=== PATIENT | female | born 1965 | race Caucasian/White ===

== ENCOUNTER → 2020-05-09 | Outpatient (CLI) | payer OTHER ==
[2020-05-09 10:02] LABS: HCT 47.6 % (34.0-46.0); HGB 15.9 gm/dL (11.4-16.0); MCH 29.4 pg (25.0-35.0); MCHC 33.3 g/dL (31.0-37.0); MCV 88.2 fL (80.0-100.0); Mean Platelet Volume 7.5; Platelet Count 322 k/uL (150-450); RDW 13.4 % (11.5-15.5); WBC 7.6 k/uL (3.8-10.6)
[2020-05-09 10:29] LABS: Appearance,Urine Clear (Clear); Bilirubin,Urine Negative (Negative); Blood,Urine Negative (Negative); Color,Urine Light Yellow; Glucose,Urine (UA) Negative (Negative); Ketones,Urine Negative (Negative); Leukocyte Esterase,Urine Moderate (Negative); Mucus,Urine Rare /hpf; Nitrite,Urine Negative (Negative); Protein,Urine Negative (Negative); RBC,Urine 1 /hpf (0-5); Specific Gravity,Urine 1.011 (1.001-1.035); Squamous Epithelial Cell,Urine 1 /hpf (0-4); Urobilinogen,Urine <2.0 mg/dL (<2.0); WBC,Urine 2 /hpf (0-5)
[2020-05-09 15:04] LABS: INR 0.99 (0.90-1.11); Partial Thromboplastin Time 24.6 sec (24.7-29.9); Prothrombin Time 10.6 sec (9.9-11.9)
[2020-05-09 17:14] LABS: African American GFR (CKD) 97.6 (60.0-200.0); Albumin 4.5 g/dL (3.80-4.90); Albumin/Globulin Ratio 2.05 (1.60-3.17); Anion Gap 8.4 mmol/L (4.00-12.00); Calcium 9.8 mg/dL (8.7-10.3); Carbon Dioxide 31.6 mmol/L (21.6-31.8); Globulin 2.2 g/dL (1.6-3.3); Non-African American GFR(CKD) 84.2 (60.0-200.0); Potassium 3.4 mmol/L (3.5-5.5); Total Bilirubin 0.5 mg/dL (0.3-1.2); Total Protein 6.7 g/dL (6.2-8.2)
== END | disposition home or self-care (01) ==
LOC: LABWHC1 08:44
PROVIDERS: ATTEND Orthopaedic Surgery Sports Medicine
DX: Z01.818 Encounter for other preprocedural examination (principal); Z01.812 Encounter for preprocedural laboratory examination; M17.11 Unilateral primary osteoarthritis, right knee
CPT/HCPCS: 36415; 80053; 81001; 85027; 85610; 85730; 87070; 93005

== ENCOUNTER 2020-05-25 07:29 | Day surgery (SDC) | payer OTHER ==
[2020-05-17 09:18] VITALS: BMI 37.1
[~2020-05-25 07:29] MED LIST: CLINDAMYCIN 900 MG in DEXTROSE 5% IN WATER 50 ML IVPB ONE; HYDROmorphone 0.5 MG/0.5 ML SYRINGE IVP PRN; MIDAZOLAM 2 MG/2 ML VIAL IV PRN; ONDANSETRON 4 MG/2 ML VIAL IVP ONE; ROPIVACAINE 246.25 MG, EPINEPHrine 0.5 MG, KETOROLAC 30 MG, cloNIDine HCL/PF 80 MCG, WA... MISCELLANE ONE; TRANEXAMIC ACID 1,000 MG in SODIUM CHLORIDE 0.9% 100 ML IVPB ONE
[2020-05-25] MEDS: LACTATED RINGERS 1,000 ML IV SCH ×3 (08:08→15:49)
[2020-05-25] MEDS ORDERED: ACETAMINOPHEN TAB 500 MG TAB ONE (08:12)
[2020-05-25] MEDS ORDERED: ONDANSETRON 4 MG/2 ML VIAL ONE (08:13)
[2020-05-25] MEDS: GABAPENTIN 300 MG CAP PO ONE ×2 (08:18→13:58)
[2020-05-25] MEDS: MELOXICAM 7.5 MG TAB PO ONE ×2 (08:18→13:58)
[2020-05-25] MEDS: ACETAMINOPHEN TAB 500 MG TAB PO ONE ×2 (08:18→13:57)
[2020-05-25] MEDS: ONDANSETRON 4 MG/2 ML VIAL IVP ONE ×2 (08:19→15:48)
[2020-05-25] MEDS: DEXAMETHASONE SOD PHOSPHATE 10 MG/ML 1 ML VIAL IV ONE ×2 (08:19→15:48)
--- NOTE | 2020-05-25 08:50 | P.ANPRN ---
Procedure Note - Anesthesia - Nerve Block Performed Right Adductor Canal Infusion Time Out Performed: Yes Date of Procedure: 05/25/20 Procedure Start Time: : Procedure Stop Time: :37 Location of Patient: PreOp Indication: Acute Post-Operative Pain, Requested by Surgeon Sedation Type: Sedate with meaningful contact maintained Preparation: Sterile Prep, Sterile Dressing Position: Supine Catheter: Indwelling Needle Types: Pajunk Needle Gauge: 21 Ultrasound used to visualize needle placement: Yes Ultrasound used to observe medication spread: Yes Blood Aspirated: No Pain Paresthesia on Injection Noted: No Resistance on Injection: Normal Image Stored and Saved: Yes Events: Uneventful and Well Tolerated (ropi .5% 20cc plus dexamethasone 4mg)
[2020-05-25] MEDS ORDERED: MIDAZOLAM 2 MG/2 ML VIAL ONE (09:33)
[2020-05-25] MEDS ORDERED: TRANEXAMIC ACID 1,000 MG/10 ML VIAL ONE (09:33)
[2020-05-25] MEDS ORDERED: fentaNYL (PF) 50 MCG/ML 2 ML AMP ONE (09:33)
[2020-05-25] MEDS ORDERED: SODIUM CHLORIDE 0.9% 100 ML BAG ONE (09:33)
[2020-05-25] MEDS ORDERED: PROPOFOL 10 MG/ML 20 ML VIAL IV ONE (09:33)
[2020-05-25] MEDS ORDERED: ceFAZolin 3,000 MG in SODIUM CHLORIDE 0.9% IRRIGATIO 3,000 ML IRRIGATION ONE (10:09)
[2020-05-25] MEDS ORDERED: LACTATED RINGERS 1,000 ML IV ONE (10:33)
[2020-05-25] MEDS ORDERED: ROPIVACAINE 0.2%-NS ON-Q PUMP 1,090 MG, EMPTY PAIN BALL 1 EACH MISCELLANE PRN (11:42)
[2020-05-25] MEDS ORDERED: ACETAMINOPHEN TAB 325 MG TAB PO PRN (12:19)
[2020-05-25] MEDS ORDERED: diazePAM 5 MG TAB PO PRN (12:19)
[2020-05-25] MEDS ORDERED: HYDROmorphone 1 MG/ML 1 ML SYRINGE IVP PRN (12:19)
[2020-05-25] MEDS ORDERED: NALOXONE 0.4 MG/ML 1 ML VIAL IV PRN (12:19)
[2020-05-25] MEDS ORDERED: TEMAZEPAM 15 MG CAP PO PRN (12:19)
[2020-05-25] MEDS ORDERED: Acetaminophen-Codeine 300-30mg TAB PO PRN ×2 (12:19)
[2020-05-25] MEDS ORDERED: bisacodyL 10 MG SUPP RECTAL PRN (12:19)
[2020-05-25] MEDS ORDERED: traMADol 50 MG TAB PO PRN (12:19)
[2020-05-25] MEDS ORDERED: NA PHOS,M-B/NA PHOS,DI-BA 133 ML ENEMA RECTAL PRN (12:19)
[2020-05-25] MEDS ORDERED: ONDANSETRON 4 MG/2 ML VIAL IVP PRN (12:19)
[2020-05-25] MEDS ORDERED: MAGNESIUM HYDROXIDE 2,400 MG/10 ML CUP PO PRN (12:19)
[2020-05-25] MEDS ORDERED: HYDROcodone/APAP 5-325MG 1 EACH TAB PO PRN (12:19)
[2020-05-25] MEDS ORDERED: hydrOXYzine pamoate 25 MG CAP PO PRN (12:19)
[2020-05-25] MEDS ORDERED: HYDROmorphone 0.5 MG/0.5 ML SYRINGE IVP PRN ×2 (12:19)
--- NOTE | 2020-05-25 12:27 | XR ---
EXAMINATION TYPE: XR knee limited RT DATE OF EXAM: 05/25/2020 COMPARISON: NONE HISTORY: 54-year-old female postoperative right knee replacement, assess alignment and complications TECHNIQUE: 2 views FINDINGS: Images show placement of right total knee are requested. Both distal femoral and proximal tibial comp onents of the prosthesis appear well seated without there are prostatic fracture. Alignment grossly a natomic. Anterior soft tissue swelling with scattered soft tissue air as well as intra-articular air in joint fluid compatible with recent operation. IMPRESSION: Uncomplicated postoperative appearance right total knee arthroplasty.
[2020-05-25] MEDS ORDERED: ceFAZolin 3 GM in SODIUM CHLORIDE 0.9% 100 ML IVPB SCH (16:00)
[2020-05-25] MEDS: CLINDAMYCIN 900 MG in DEXTROSE 5% IN WATER 50 ML IVPB SCH ×4 (16:13→22:27)
--- NOTE | 2020-05-25 18:35 | CONS ---
CONSULTATION REASON FOR CONSULTATION: Advice regarding hypertension and other multiple medical issues, requested by Dr. Mercado. HISTORY OF PRESENT ILLNESS: This 54-year-old woman with a past medical history of GERD, hypertension, history of liver disease, history of DJD, history of back surgery, being followed by Dr. Musa Avina in the outpatient setting, was admitted after right total knee arthroplasty. The patient tolerated the procedure well. There is no history of any fever, rigor or chills. No history of headache, loss of consciousness, seizures. The blood pressure was found to be 109/55 after surgery, pulse ox 93% on room air. PAST MEDICAL HISTORY: History of GERD, hypertension, liver disease, DJD, history of appendectomy, back surgery. HOME MEDICATIONS: 1. Maxzide 1 tablet p.o. daily. 2. Protonix 40 daily. 3. Fish oil 2 daily. 4. Multivitamins. 5. Loratadine. 6. Skin cream. ALLERGIES: AMOXICILLIN AND MORPHINE. FAMILY HISTORY: History of ovarian cancer in the family. SOCIAL HISTORY: No history of smoking. No history of alcohol intake. REVIEW OF SYSTEMS: ENT: No diminished hearing. No diminished vision. CARDIOVASCULAR SYSTEM: No angina, palpitations. RESPIRATORY SYSTEM: No cough, hemoptysis. GI: No nausea, vomiting, diarrhea. : No dysuria or retention. NERVOUS SYSTEM: No numbness, weakness. ALLERGY/IMMUNOLOGY: No asthma, hayfever. MUSCULOSKELETAL: As mentioned earlier. HEMATOLOGY/ONCOLOGY: No history of anemia. ENDOCRINE: No history of diabetes, hypothyroidism. CONSTITUTIONAL: As mentioned earlier. DERMATOLOGY: Negative. RHEUMATOLOGY: Negative. PSYCHIATRY: As mentioned earlier. PHYSICAL EXAMINATION: Patient alert and oriented x3. Pulse 59, blood pressure 109/55, respiration 18, temperature 97.5, pulse ox 94% on room air. HEENT: Conjunctivae normal. Oral mucosa moist. NECK: No jugular venous distention. No carotid bruit. No lymph node enlargement. CARDIOVASCULAR SYSTEM: S1, S2 muffled. RESPIRATORY SYSTEM: Breath sounds diminished at the bases. A few scattered rhonchi and crackles. ABDOMEN: Soft, non-tender. No mass palpable. LEGS: Status post right knee arthroplasty. NERVOUS SYSTEM: Higher functions as mentioned earlier. Moves all 4 limbs. No focal motor or sensory deficit. LYMPHATICS: No lymph node palpable in neck, axillae or groin. SKIN: No ulcer, rash, bleeding. JOINTS: No active deforming arthropathy. LABS: Potassium 4.2. The previous preoperative labs are CBC within normal limits. Otherwise, labs are noted. ASSESSMENT: 1. Status post right total knee arthroplasty. 2. History of gastroesophageal reflux disease. 3. Hypertension. 4. Chronic degenerative joint disease. 5. Appendectomy. 6. History of back surgery. 7. Remote history of nicotine dependence. RECOMMENDATIONS AND DISCUSSION: In this 54-year-old woman who presented with multiple complex medical issues, we will monitor the patient closely, continue the current medications, continue with symptomatic treatment. Monitor blood pressure closely. Hold Maxzide at this time. Guarded prognosis. Further recommendations to follow. Thank you, Dr. Mercado, for letting us participate in the care of this patient. Recommend close followup with primary physician after discharge. SHARON / CIELO: [id number] / MTDNatali
[2020-05-25] MEDS: HYDROcodone/APAP 10-325MG 1 EACH TAB PO PRN (18:40)
[2020-05-25] MEDS: ASPIRIN 81 MG PO SCH (19:22)
[2020-05-25] MEDS ORDERED: SENNOSIDES-DOCUSATE SODIUM 1 EACH TAB PO SCH (21:00)
[2020-05-26] MEDS: LACTATED RINGERS 1,000 ML IV SCH ×3 (00:12→07:31)
--- NOTE | 2020-05-26 01:12 | OP ---
OPERATIVE REPORT DATE OF PROCEDURE: 05/25/2020 SURGEON: Kevin Mercado MD. DIRECTOR TARGETED MARKETING: Oliver BUCKNER. PREOPERATIVE DIAGNOSIS: Right knee osteoarthrosis. POSTOPERATIVE DIAGNOSIS: Right knee osteoarthrosis. OPERATION: Right total knee arthroplasty. ANESTHESIA: Spinal with sedation. ESTIMATED BLOOD LOSS: 100 mL. TOURNIQUET TIME: 50 minutes at 250 mmHg. COMPLICATIONS: None apparent. DRAINS: None. DISPOSITION: Postanesthesia care unit. INDICATIONS: Genesis is a 54-year-old female with longstanding history of right knee pain. History and physical examination are consistent with advanced right knee osteoarthrosis. She has been through significant nonoperative management up to this point. Further treatment options were discussed and she decided to go for the right total knee arthroplasty. The risks of procedure were discussed with her in detail. These risks include, but are not limited to risk of infection, nerve damage, bleeding, pain, and a small risk of deep vein thrombosis which could lead to fatal pulmonary embolism. There is also risk of loosening of the implant which could require revision operation. The patient understands these risks. All of her questions were answered to her satisfaction. Appropriate informed consent was obtained. DESCRIPTION OF PROCEDURE: The patient identified in preoperative holding area. Surgical site was marked by both the patient and myself. She was given 2 g of Ancef IV for prophylactic purposes. She was then transferred to the operative suite. She was placed supine on the operating room table. Spinal anesthetic was then administered and dosed per the anesthesia department without apparent complication. Examination under anesthesia was then performed. The patient was 2-3 degrees shy of full extension. She had 95 degrees of flexion. The medial collateral ligament, lateral collateral ligament and posterior cruciate ligaments were stable. Tourniquet was then placed high on the right upper thigh well-padded in preparation for surgery. The patient's right lower extremity was then prepped and draped in usual sterile fashion. Standard surgical pause was then undertaken to ensure that we were operating on the correct site and that appropriate preoperative antibiotics had been given. All staff in the room were in agreement and we proceeded. The outlines of patella were marked with surgical pen. A planned 12 cm vertical incision centered over the patella was marked with surgical pen. The leg was then exsanguinated with an Esmarch dressing. The knee was then flexed and tourniquet was inflated to 250 mmHg. Total tourniquet time for the procedure was 50 minutes at 250 mmHg. Incision was then made with a 10 blade scalpel. Dissection carried down sharply overlying fascia. Great care was taken to minimize the skin flaps. The knee was then exposed using a standard medial parapatellar approach. A small cuff of quadriceps tendon was then left for suturing. She was in a bit of varus preoperatively. Standard medial release was then made. Superficial medial collateral ligament was dissected off the bone around the posterior aspect of the proximal tibia. The medial meniscus was then excised as well. The lateral meniscus was also released anteriorly. The leg was then externally rotated. The patella was everted. The knee was flexed. Retractors were then placed to protect the collateral ligaments. I then proceeded to remove the infrapatellar fat pad. This was excised sharply tangentially with fibers of the patellar tendon. I then proceeded to remove peripheral osteophytes. This was done with a rongeur. I then proceeded with distal femoral resection. She did have near full extension. A planned 9 mm resection was then done. The femoral canal was then entered in the midline of the femur approximately 10 mm anterior to the origin of the posterior cruciate ligament. The niesha was then advanced down the center of the femur and placed intramedullary. Based on the preoperative radiographs, the angle between the anatomic and mechanical axis of the femur was approximately 4-5 degrees. The valgus angle of this femoral cutting guide was then set at 4 degrees for the right knee. The distal femoral cutting guide was then advanced over the intramedullary niesha. This was seated firmly against the femur. I then as mentioned planned to take 9 mm off the distal femur. The cutting block was then secured onto the femur with pins. The jig was removed and the distal femoral cut was made through the slot of the block. The pins were then removed and the distal femoral cutting block was removed. The accuracy of the distal femoral cuts was checked with 2 flat bars. I then proceeded with femoral sizing. Posterior referencing sizing guide was held firmly against the resected distal surface of the femur. The posterior condyles were resting on the posterior plane of the guide. The sizing stylus was then placed onto the anterior femur. The size was measured as a size 6. I then assessed for femoral rotation. Plan was for 3 degrees of external rotation. Three degrees of external rotation was placed onto the jig. These holes were then marked. I then confirmed the rotation by 3 separate methods. This was done using epicondylar axis as well as Whitesides line and posterior referencing. It was deemed that the external rotation was proper. I then went forward with placing the femoral cutting block. This was placed over the previously placed pin holes. The Ricardo wing was placed on the anterior slots to ensure that we would not notch the anterior femur with the anterior femoral cut. I then proceeded with the anterior femoral cut. This was flushed with the anterior cortex of the femur. The posterior cuts were then made followed by the anterior chamfer cut, then the posterior chamfer cut. The cutting block was then removed. Throughout the resection, the collateral ligaments were protected with retractors. I then placed a trial size 6 femur. It appeared to fit very nice medial-lateral and fit flush with the distal end of the femur. The drill holes were then made. I then proceeded with the tibial cut. I planned for cruciate retaining knee. The guide was placed and set for varus valgus and for slope. The height was set for approximate 2 mm resection from the medial tibial plateau which was the lower side. I was happy with the alignment amount of resection. The cutting block was then pinned to the proximal tibia. The alignment niesha was removed. The proximal tibia was resected with a reciprocating saw. Again this was done with retractors protecting the collateral ligaments as well as the posterior cruciate ligament. I then proceeded to evaluate the flexion and extension gaps. A 10 mm block was then placed. The flexion and extension gaps were equal. I then proceeded with resection of posterior osteophytes. Very minimal posterior osteophytes. This was done using a curved osteotome. This resected the posterior osteophytes and posterior capsule stripping done off the posterior aspect of the femur. The osteophytes were then removed. I then proceeded with resection of patella. The thickness of the patella was measured using the caliper. The thickness was 22 mm. Thickness of the anticipated patellar dome was taken into account. Resection was then performed and confirmed to be equal in 4 quadrants using a caliper. Approximately 14 mm of bone remained after resection. A 29 x 8 standard patellar trial was then placed. The holes were drilled. The trial was then placed. I then proceeded with sizing tibial plate. A size D tibial plate fit very nicely. I then placed the trial femur, the tibial tray and patellar button. A 10 mm trial tibial insert was also placed. The components fit very nicely. She had full extension and flexion. The extension and flexion gaps were equal and stable to both varus and valgus stress. The patella tracked appropriately. The tibial tray rotation was then marked with a Bovie. This was externally rotated properly. I then proceeded with tibial preparation. I first drilled the femoral holes removed femoral component. The tibial tray was then set for proper external rotation as well as mediolateral placement onto the tibia. It was then pinned into place. Then proceeded with punching the keel. I then decided to proceed with cementing of all of our components. The knee was thoroughly irrigated with sterile saline solution via pulse lavage. The lateral geniculate artery was identified and cauterized. All blood was removed from the bone of the tibia femur and patella with pulse lavage. I then proceeded with cementing. Two packs of antibiotic bone cement prepared on the back table by the surgical attendant. I then proceed with cementing of the tibia first. Cement was impacted in the keel as well as deeply seated into the bone. A second coat of cement was then placed. The tibia was then impacted into place. Excess cement was removed with Laura's and jokers. I then proceeded to cementing of the femoral component. The femoral component was also cemented using standard technique. Excess cement was removed. A 10 mm trial insert was then placed into the knee. It was brought into full extension with a constant axial load placed until the cement had hardened. The patellar component was then cemented. This was held firmly with a compressive device until the cement had dried. When the cement had dried, the knee was taken out of extension. All excess cement was removed from around the prosthesis. I then trialed the knee with a 10 mm insert. The flexion and extension gaps were appropriate. The knee was stable. It came into full extension. I decided to go forward with the 10 mm cross-linked cruciate-retaining tibial insert. Polyethylene was then placed on the tibial tray and locked into place. The knee was then reduced. The knee was again further irrigated with sterile saline solution with antibiotic added. The tourniquet was then deflated. Total tourniquet time for the procedure was 50 minutes at 250 mmHg. Final components were Hussein Persona size 6 cruciate-retaining femoral component size D tibial tray, a 10 mm medial congruent cruciate-retaining polyethylene insert and a 29 x 8 patella. I then proceeded with closure. Again, the knee was thoroughly irrigated. The quadriceps tendon and the medial retinaculum were reapproximated with #2 Ethibond suture. The extensor mechanism was then closed with a running #2 Quill suture. Subcutaneous tissues were closed with 2-0 Vicryl interrupted suture. The skin was closed with a running 3-0 Quill suture. Dermabond was applied to the incision. Sterile compressive dressings were applied. All sponge and needle counts were deemed correct prior to closure. The patient tolerated procedure without apparent complication. She was transferred recovery room in stable condition. MMODL / IJN: [id number] /
[2020-05-26] MEDS: HYDROcodone/APAP 10-325MG 1 EACH TAB PO PRN ×2 (01:23→10:05)
--- NOTE | 2020-05-26 06:41 | P.PN ---
Progress Note - Text 05/26/20 633am 54-year-old female status post total knee replacement by Dr. Mercado. Patient seen and evaluated this morning, patient has an On-Q pump for postop pain control with the solution running at 8 mL an hour, patient has a VAS of 5. Patient states that she is comfortable and doing well. Plan to continue On-Q pump infusion
[2020-05-26] MEDS: ASPIRIN 81 MG PO SCH (07:41)
[2020-05-26 07:44] VITALS: BP 100/66; PULSE 77; RESP 18; TEMP 97.8
[2020-05-26 09:25] LABS: Basophils # (A) 0.1 k/uL (0-0.2); Basophils % (A) 0 %; Eosinophils % (A) 0 %; HCT 43.6 % (34.0-46.0); HGB 14.2 gm/dL (11.4-16.0); Lymphocytes # (A) 1.9 k/uL (1.0-4.8); Lymphocytes % (A) 11 %; MCH 29.4 pg (25.0-35.0); MCHC 32.7 g/dL (31.0-37.0); MCV 89.9 fL (80.0-100.0); Mean Platelet Volume 7.5; Monocytes # (A) 0.7 k/uL (0-1.0); Monocytes % (A) 4 %; Neutrophils # (A) 14.2 k/uL (1.3-7.7); Neutrophils % (A) 83 %; Platelet Count 319 k/uL (150-450); RBC 4.85 m/uL (3.80-5.40); RDW 13.4 % (11.5-15.5); WBC 17.2 k/uL (3.8-10.6)
--- NOTE | 2020-05-26 11:19 | P.PN ---
Subjective Progress Note Date: 05/26/20 Principal diagnosis: Right TKA Patient is seen at bedside this morning. She is postop day #1 from right total knee arthroplasty. She has pain at the surgical site as expected but denies any new complaints. She denies numbness, tingling or calf pain. Review of systems is negative for fever, chills, chest pain, shortness of breath or other Objective - Vital Signs Vital signs: Vital Signs Temp 97.8 F 05/26/20 07:00 Pulse 77 05/26/20 07:00 Resp 18 05/26/20 07:00 BP 100/66 05/26/20 07:00 Pulse Ox 93 L 05/26/20 07:00 Intake & Output 05/25/20 05/26/20 05/26/20 18:59 06:59 18:59 Intake Total 1857 Output Total 100 Balance 1757 Weight 104.1 kg Intake: IV 1857 Output: Estimated Blood Loss 100 Other: Voiding Method Toilet # Voids 2 - Exam Inspection reveals a benign surgical wound. There is no active bleeding or drainage. Neurovascular status is intact throughout the lower extremity with motor and sensation fully intact. Calf is soft and nontender. 2+ dorsalis pedis pulse and less than 2 second cap refill is present. - Constitutional General appearance: Present: no acute distress - Labs CBC & Chem 7: 05/26/20 08:48 05/25/20 08:10 Labs: Abnormal Lab Results - Last 24 Hours (Table) 05/26/20 Range/Units 08:48 WBC 17.2 H (3.8-10.6) k/uL Neutrophils # 14.2 H (1.3-7.7) k/uL Assessment and Plan (1) Status post total right knee replacement Narrative/Plan: She will continue with routine postop orthopedic protocol including pain management, wound care, PT, DVT prophylaxis and medical management. Expect that she will transfer to home tomorrow Current Visit: Yes Status: Acute Priority: Medium Code(s): Z96.651 - PRESENCE OF RIGHT ARTIFICIAL KNEE JOINT SNOMED Code(s): 9309755263201 Time with Patient: Less than 30
--- NOTE | 2020-05-26 11:28 | P.DS ---
Providers Expected date of discharge: 05/26/20 Attending physician: Kevin Mercado Consults: 05/25/20 12:19 Consult Physician Routine Consulting Provider: Sarwat Hernandez Consult Reason/Comments: post op medical management Do you want consulting provider notified?: Yes Primary care physician: Musa Avina - Discharge Diagnosis(es) (1) Status post total right knee replacement Patient was admitted to the OR on 05/25/2020 to undergo a right total knee arthroplasty. She had failed conservative measures as an outpatient and desired to proceed with elective surgery after given informed consent. She underwent the above procedure which she tolerated well without complication. Postoperative hospital course has remained without complication. On day of discharge she is afebrile, vital signs stable, labs within acceptable ranges, tolerating by mouth meds and diet, voiding without difficulty, positive flatus, denies abdominal pain or calf pain, pain is controlled on oral pain medication and has no new complaints. Wound is benign, neurovascular status is intact, calf is soft and nontender, abdomen soft and nontender. Review of systems is negative for numbness, tingling, fever, chills, chest pain, shortness of breath, nausea, vomiting, dizziness, headaches, slurred speech or other. Current Visit: Yes Status: Acute Priority: Medium Procedures: Right TKA Patient Condition at Discharge: Good Plan - Discharge Summary Discharge Rx Participant: Yes New Discharge Prescriptions: New Aspirin [Adult Low Dose Aspirin EC] 81 mg PO BID #60 tablet. HYDROcodone/APAP 10-325MG [[place] 10-325] 1 tab PO Q4HR PRN #42 tab PRN Reason: Pain No Action Pantoprazole Sodium [Protonix] 40 mg PO QAM Triamterene-Hctz 75-50Mg [Maxzide 75-50] 1 tab PO DAILY [place]-3 Fatty Acids/Fish Oil [Fish Oil 1,000 mg Softgel] 2 each PO DAILY Multivitamins, Thera [Multivitamin (formulary)] 1 tab PO DAILY Loratadine 10 mg PO DAILY Chemo Cream For Skin Ca 1 applic TOPICAL Q3D Discharge Medication List Chemo Cream For Skin Ca 1 applic TOPICAL Q3D 05/17/20 [History] Loratadine 10 mg PO DAILY 05/17/20 [History] Multivitamins, Thera [Multivitamin (formulary)] 1 tab PO DAILY 05/17/20 [History] [place]-3 Fatty Acids/Fish Oil [Fish Oil 1,000 mg Softgel] 2 each PO DAILY 05/17/20 [History] Pantoprazole Sodium [Protonix] 40 mg PO QAM 05/17/20 [History] Triamterene-Hctz 75-50Mg [Maxzide 75-50] 1 tab PO DAILY 05/17/20 [History] Aspirin [Adult Low Dose Aspirin EC] 81 mg PO BID #60 tablet. 05/26/20 [Rx] HYDROcodone/APAP 10-325MG [[place] 10-325] 1 tab PO Q4HR PRN #42 tab 05/26/20 [Rx] Follow up Appointment(s)/Referral(s): Kevin Mercado MD [STAFF PHYSICIAN] - 06/06/20 9:20 am Ambulatory/Diagnostic Orders: Ambulatory Physical Therapy Order [THER.AMB] Location: None Selected Activity/Diet/Wound Care/Special Instructions: Patient wants out patient therapy and will need a script for this prior to d/c Keep wound clean and dry Take meds as directed Follow-up with Dr. Mercado in office Weight bear as tolerated May shower in 3 days if no bleeding Discharge Disposition: HOME WITH HOME HEALTH SERVICES
[2020-05-26] MEDS ORDERED: MULTIVITAMINS, THERA 1 EACH TAB PO SCH (12:00)
== END 2020-05-26 13:15 | disposition home health service (06) ==
LOC: OR 07:29 → 4SSUR 11:34 → OR 05-26 13:15
PROVIDERS: ATTEND Orthopaedic Surgery Sports Medicine
DX: M17.0 Bilateral primary osteoarthritis of knee (principal); I10 Essential (primary) hypertension; K21.9 Gastro-esophageal reflux disease without esophagitis; E78.5 Hyperlipidemia, unspecified; Z88.0 Allergy status to penicillin; Z88.5 Allergy status to narcotic agent; Z79.899 Other long term (current) drug therapy; Z90.49 Acquired absence of other specified parts of digestive tract; Z90.710 Acquired absence of both cervix and uterus; Z98.890 Other specified postprocedural states; Z87.891 Personal history of nicotine dependence; Z85.828 Personal history of other malignant neoplasm of skin; Z80.41 Family history of malignant neoplasm of ovary
CPT/HCPCS: 97110; 97161; 64448; 76942; 84132; 85025; 88300; 73560; 27447; C1776; C1713; J2250; J0171; J1100; J2405; J0690; J3010; J1885; J2795; J2704; J0735

== ENCOUNTER → 2020-12-12 | Outpatient (CLI) | payer OTHER ==
--- NOTE | 2020-12-12 22:33 | MR ---
EXAMINATION TYPE: MR lumbar spine wo con DATE OF EXAM: 12/12/2020 COMPARISON: NONE HISTORY: Lower back pain for years. Middle to right sided. Surgery in 2015. TECHNIQUE: Multiplanar, multisequence imaging of the lumbar spine is performed without IV contrast. FINDINGS: Sagittal images of the lumbar spine show vertebral body heights and alignment to appear sat isfactory. There is artifact from posterior interpedicular rods and screws and disc material L4-L5 le bree. Multilevel disc desiccation. Mild disc space narrowing L5-S1 level The conus medullaris is norm al in position and signal ending at inferior T12 level. Mild multilevel anterior spurring. The bone marrow signal intensity is within normal limits. Axial images show T12-L1 level to appear within normal limits. Axial images at L1-L2 level shows mild broad-based disc bulge minimally effacing the anterior thecal sac. Axial images at L2-L3 level show mild broad disc bulge and facet arthropathy. Spinal canal is preserv ed. Axial images at L3-L4 level show [id number] broad disc bulge mildly effacing anterior thecal sa c with mild facet degenerative changes and ligamentum flavum hypertrophy. Patent bilateral neural for sukumar. Axial images L4-L5 level show artifact from disc material. Spinal canal preserved. Right-sided beau ctomy defect. Bilateral neural foramina are felt patent. Some artifact degradation. Axial images L5-S1 level show tiny central disc protrusion. Spinal canal is preserved as is increased epidural fat. Mild facet arthropathy bilaterally. Patent bilateral neural foramina. The paraspinal muscle bulk is maintained. IMPRESSION: Postsurgical change L4-L5 level with satisfactory alignment. Mild to moderate multilevel degenerative changes lumbar spine as detailed above.
== END | disposition home or self-care (01) ==
LOC: RADMRIMAIN 16:33
PROVIDERS: ATTEND Family Medicine
DX: M51.27 Other intervertebral disc displacement, lumbosacral region (principal); M51.37 Other intervertebral disc degeneration, lumbosacral region; M47.816 Spondylosis without myelopathy or radiculopathy, lumbar region
CPT/HCPCS: 72148

== ENCOUNTER → 2021-08-01 | Outpatient (CLI) | payer OTHER ==
[2021-08-02 01:28] LABS: Basophils # (A) 0.09 X 10*3/uL (0.00-0.10); Eosinophils # (A) 0.16 X 10*3/uL (0.04-0.35); Eosinophils % (A) 1.8 %; HCT 50.5 % (37.2-46.3); HGB 16.7 g/dL (12.0-15.0); Lymphocytes # (A) 2.62 X 10*3/uL (0.90-5.00); MCH 29.7 pg (27.0-32.0); MCHC 33.1 g/dL (32.0-37.0); MCV 89.7 fL (80.0-97.0); Mean Platelet Volume 11.3 fL (9.5-12.2); Monocytes # (A) 0.65 X 10*3/uL (0.20-1.00); Monocytes % (A) 7.4 %; Neutrophils # (A) 5.18 X 10*3/uL (1.80-7.70); Neutrophils % (A) 59.5 %; Platelet Count 342 X 10*3/uL (140-440); RBC 5.63 X 10*6/uL (4.10-5.20); RDW 13.2 % (11.5-14.5); WBC 8.73 X 10*3/uL (4.50-10.00)
[2021-08-02 03:38] LABS: % Iron Saturation 15.91 (12.00-45.00); African American GFR (CKD) 99.7 (60.0-200.0); Albumin 4.8 g/dL (3.8-4.9); Albumin/Globulin Ratio 1.66 (1.60-3.17); Anion Gap 6.9 mmol/L (4.00-12.00); BUN/Creat Ratio 9.82 Ratio (12.00-20.00); Blood Urea Nitrogen 7.6 mg/dL (9.0-27.0); Calcium 10.1 mg/dL (8.7-10.3); Carbon Dioxide 33.8 mmol/L (21.6-31.8); Globulin 2.9 g/dL (1.6-3.3); Potassium 3.7 mmol/L (3.5-5.5); Total Bilirubin 0.5 mg/dL (0.30-1.20); Total Protein 7.6 g/dL (6.2-8.2)
[2021-08-02 07:24] LABS: Protein, Total 7.6 g/dL (6.2-8.2)
[2021-08-02 08:29] LABS: Hepatitis B Surface AB- Quant 3.5 mIU/mL; Hepatitis B Surface Antibody Nonreactive (Nonreactive); Hepatitis C IgG Antibody Nonreactive (Nonreactive)
[2021-08-02 08:56] LABS: Ceruloplasmin 26.2 mg/dL (20.0-60.0)
[2021-08-02 16:24] LABS: Albumin 4.39 g/dL (3.80-4.90); Gamma Globulin 1.18 g/dL (0.70-1.50)
== END | disposition home or self-care (01) ==
LOC: LABWHC1 15:26
PROVIDERS: ATTEND Internal Medicine Gastroenterology
DX: K76.0 Fatty (change of) liver, not elsewhere classified (principal); R74.8 Abnormal levels of other serum enzymes
CPT/HCPCS: 36415; 80053; 82103; 82390; 82728; 83516; 83540; 83550; 84165; 85025; 86038; 86706; 86803